=== PATIENT | male | born 1975 | race Caucasian/White ===

== ENCOUNTER 2017-02-03 18:44 | Emergency (ER) | payer SELFPAY ==
[2017-02-03 19:02] VITALS: BP 132/84
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
== END 2017-02-03 19:33 | disposition short-term general hospital (02) ==
LOC: UCEAST 18:44
DX: S01.312A Laceration without foreign body of left ear, initial encounter (principal); S01.81XA Laceration without foreign body of other part of head, initial encounter; Y04.0XXA Assault by unarmed brawl or fight, initial encounter; Y93.9 Activity, unspecified; Y92.9 Unspecified place or not applicable; Y99.9 Unspecified external cause status
CPT/HCPCS: 99202; G0463

== ENCOUNTER 2017-02-03 20:12 | Emergency (ER) | payer SELFPAY ==
--- NOTE | 2017-02-03 21:15 | RAD ---
INDICATION: Head injury. COMPARISON: There are no prior studies available for comparison. TECHNIQUE: Contiguous axial sections of the brain were obtained from the skull base to the vertex without contrast. FINDINGS: The ventricles, cisterns and sulci are within normal limits. There is a small arachnoid cyst anterior to the left temporal lobe measuring 1.5 x 1.0 cm in size. No significant focal abnormality or mass effect is seen. There is no evidence for hemorrhage. There is focal soft tissue swelling anterior to the left frontal bone. No fracture is seen. The visualized portion of the paranasal sinuses and mastoid air cells appear clear. IMPRESSION: 1. NO EVIDENCE FOR ACUTE INTRACRANIAL ABNORMALITY. 2. SOFT TISSUE SWELLING IN THE SCALP ANTERIOR TO THE LEFT FRONTAL BONE.
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
[2017-02-03] MEDS ORDERED: Lidocaine 1%* 5 ML VIAL ONE ×2 (21:57→21:58)
[2017-02-03] MEDS ORDERED: Amoxicillin/Clavulanate TAB* 875 MG PO ONE (22:48)
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
[2017-02-03 23:18] VITALS: BP 127/80
== END 2017-02-03 23:18 | disposition home or self-care (01) ==
LOC: ED 20:12
DX: S01.312A Laceration without foreign body of left ear, initial encounter (principal); S01.81XA Laceration without foreign body of other part of head, initial encounter; S02.2XXA Fracture of nasal bones, initial encounter for closed fracture; Y04.2XXA Assault by strike against or bumped into by another person, initial encounter; Y93.9 Activity, unspecified; Y92.9 Unspecified place or not applicable
CPT/HCPCS: 12013; 70450; 70486; 99282; A9270-GY

== ENCOUNTER 2019-04-21 17:46 | Emergency (ER) | payer OTHER ==
[2019-04-21] MEDS ORDERED: Ibuprofen TAB* 600 MG PO ONE (18:33)
[2019-04-21] MEDS ORDERED: Meclizine TAB* 12.5 MG PO ONE (18:33)
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
[2019-04-21 18:53] VITALS: BP 118/72
== END 2019-04-21 18:50 | disposition home or self-care (01) ==
LOC: ED 17:46
DX: S06.0X9A Concussion with loss of consciousness of unspecified duration, initial encounter (principal); W20.8XXA Other cause of strike by thrown, projected or falling object, initial encounter; Y92.9 Unspecified place or not applicable; S00.93XA Contusion of unspecified part of head, initial encounter
CPT/HCPCS: 99282; A9270-GY

== ENCOUNTER 2019-05-26 15:59 | Emergency (ER) | payer OTHER ==
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
[2019-05-26 17:22] VITALS: BP 136/79
== END 2019-05-26 17:21 | disposition home or self-care (01) ==
LOC: ED 15:59
DX: F07.81 Postconcussional syndrome (principal)
CPT/HCPCS: 99282